=== PATIENT | male | born 1970 | race Hispanic/Latino ===

== ENCOUNTER → 2024-10-23 | Outpatient (REF) | payer OTHER ==
[~2024-10-23] MED LIST: IOPAMIDOL 370 MG/ML 100 ML INFUS..BTL INJ ONE
== END ==
LOC: CT 14:29
PROVIDERS: ATTEND Nurse Practitioner Family
DX: R10.11 Right upper quadrant pain (principal); Z80.0 Family history of malignant neoplasm of digestive organs
CPT/HCPCS: 74160; Q9967